=== PATIENT | female | born 1965 | race Caucasian/White ===

== ENCOUNTER 2021-05-07 13:54 | Emergency (ER) | payer OTHER ==
[2021-05-07 14:44] LABS: HEMOGLOBIN 13.7 gm/dl (12.3-15.3); RED BLOOD COUNT 4.57 M/UL (4.00-5.10)
[2021-05-07 15:00] LABS: BUN/CREATININE RATIO 13 (0-10)
[2021-05-07] MEDS ORDERED: VIBRAMYCIN100 MG PO (16:32)
[2021-05-07] MEDS ORDERED: PREDNISONE 20 M20 MG PO (16:33)
[2021-05-07] MEDS ORDERED: ENDOCET 5-3251 EACH PO (16:36)
== END 2021-05-07 17:30 | disposition home or self-care (01) ==
LOC: ER1 13:54
DX: J44.1 Chronic obstructive pulmonary disease with (acute) exacerbation (principal); Z20.822 Contact with and (suspected) exposure to COVID-19
CPT/HCPCS: 71045; 80053; 82550; 82553; 83874; 83880; 84484; 85025; 94664; 96374; 96375; 99285; J1100; J2270; J2405; Q9967; U0002